=== PATIENT | female | born 1995 | race Two or more races ===

== ENCOUNTER 2017-07-30 13:48 | Outpatient (CLI) | payer OTHER ==
[~2017-07-30] VITALS: Ht 160 cm; Wt 58.6 kg
[2017-07-30 14:54] LABS: AMPHETAMINE SCREEN, URINE Negative (Negative); BARBITURATE SCREEN, URINE Negative (Negative); BENZODIAZEPINE SCREEN, URINE Negative (Negative); CANNABINOID SCREEN, URINE Negative (Negative); COCAINE SCREEN, URINE Negative (Negative); METHADONE SCREEN, URINE Negative (Negative); OPIATE SCREEN, URINE Negative (Negative)
[2017-07-30 15:07] LABS: MICROSCOPIC INDICATED
[2017-07-30] MEDS ORDERED: TERBUTALINE 1 MG/ML, 1ML ONE (15:38)
[2017-07-30 16:00] VITALS: BP 118/63
[2017-07-30] MEDS ORDERED: PLEASE ENTER HEIGHT AND WEIGHT MC SCH (16:00)
[2017-07-30] MEDS ORDERED: TERBUTALINE 1 MG/ML, 1ML SQ ONE (16:00)
== END 2017-07-30 17:06 | disposition home or self-care (01) ==
LOC: LDOP 13:48
PROVIDERS: ATTEND Obstetrics & Gynecology
DX: O26.893 Other specified pregnancy related conditions, third trimester (principal); R10.9 Unspecified abdominal pain; R10.2 Pelvic and perineal pain; Z3A.28 28 weeks gestation of pregnancy
CPT/HCPCS: 36415; 59025; 76815; 80307; 81001; 82731; 87086; 99201; J3105; G0463